=== PATIENT | male | born 1985 | race Caucasian/White ===

== ENCOUNTER → 2023-02-12 | Outpatient (CLI) | payer BC ==
[~2023-02-12] MED LIST: FLOMAX0.4 MG PO; NAPROSYN500 MG PO; ONDANSETRON4 MG SL; PERCOCET 5-3251 EACH PO; PRILOSEC20 MG PO; ZITHROMAX250 MG PO
== END | disposition home or self-care (01) ==
LOC: CT 02-07 11:00
PROVIDERS: ATTEND Nurse Practitioner
DX: R31.9 Hematuria, unspecified (principal); R10.9 Unspecified abdominal pain

== ENCOUNTER 2023-02-15 13:33 | Emergency (ER) | payer BC ==
[~2023-02-15] VITALS: Ht 177.8 cm; Wt 90.7 kg
[~2023-02-15 13:33] MED LIST changes: -FLOMAX0.4 MG PO; -ONDANSETRON4 MG SL; -PERCOCET 5-3251 EACH PO
[2023-02-15 14:37] LABS: BASO # 0.1 10*3/uL (0.0-0.1); BASO % 0.5 % (0.0-1.0); EOS # 0.2 10*3/uL (0.0-0.4); EOS % 1.8 % (1.0-4.0); LYMPH # 4.2 10*3/uL (1.3-4.4); LYMPH % 37.7 % (27.0-41.0); MEAN CELL VOLUME 89.8 fl (80.0-94.0); MEAN CORPUSCULAR HGB 30.1 pg (27.0-31.0); MEAN CORPUSCULAR HGB CONC 33.6 g/dl (33.0-37.0); MONO # 0.7 10*3/uL (0.1-1.0); NEUT % 53.8 % (47.0-73.0); PLATELET COUNT AUTOMATED 273 10*3/uL (130-400); RED BLOOD COUNT 5.01 10*6/uL (4.50-5.90); RED CELL DISTRI WIDTH 12.5 % (0-14.5); WHITE BLOOD COUNT 11.1 10*3/uL (4.8-10.8)
[2023-02-15 14:57] LABS: ALKALINE PHOSPHATASE 55 U/L (46-116); BUN 16 mg/dl (9-23); CHLORIDE 104 mmol/L (98-107); LIPASE 53 U/L (12-53); POTASSIUM 3.7 mmol/L (3.4-5.1); SGPT/ALT 24 U/L (5-49); TOTAL PROTEIN 7.5 gm/dL (6.0-8.0)
[2023-02-15 15:51] LABS: BILIRUBIN Negative (Negative); BLOOD Trace-Lysed (Negative); CLARITY Clear (Clear); COLOR Yellow (Yellow); GLUCOSE Negative (Negative); KETONE Trace (Negative); LEUKO ESTERASE Negative (Negative); NITRITE Negative (Negative); PH 5.5 (4.5-8.0); SPECIFIC GRAVITY >= 1.030 (1.001-1.030); UROBILINOGEN 0.2 E.U./dl (0.0-1.0)
[2023-02-15] MEDS ORDERED: FLOMAX0.4 MG PO (16:26)
[2023-02-15] MEDS ORDERED: ONDANSETRON4 MG SL (16:26)
[2023-02-15] MEDS ORDERED: PERCOCET 5-3251 EACH PO (16:26)
== END 2023-02-15 16:23 | disposition home or self-care (01) ==
LOC: ED 13:33
PROVIDERS: Nurse Practitioner
DX: R10.9 Unspecified abdominal pain (principal); M54.9 Dorsalgia, unspecified

== ENCOUNTER 2023-12-13 13:43 | Emergency (ER) | payer OTHER, BC ==
[~2023-12-13] VITALS: Ht 177.8 cm; Wt 90.7 kg
[~2023-12-13 13:43] MED LIST changes: +FLOMAX0.4 MG PO; +ONDANSETRON4 MG SL; +PERCOCET 5-3251 EACH PO
[2023-12-13] MEDS ORDERED: Acetaminophen/Oxycodone 5 MG/325 MG TABLET PO ONE (13:50)
[2023-12-13] MEDS ORDERED: MELOXICAM15 MG PO (14:42)
== END 2023-12-13 14:45 | disposition home or self-care (01) ==
LOC: ED 13:43
DX: M25.512 Pain in left shoulder (principal); M54.2 Cervicalgia; M25.562 Pain in left knee; M25.561 Pain in right knee; V89.2XXA Person injured in unspecified motor-vehicle accident, traffic, initial encounter; Y93.89 Activity, other specified; Y92.410 Unspecified street and highway as the place of occurrence of the external cause; Y99.8 Other external cause status